=== PATIENT | male | born 1980 | race Caucasian/White ===

== ENCOUNTER 2018-08-08 20:33 | Emergency (ER) | payer MEDICAID ==
--- NOTE | 2018-08-08 21:35 | NUR ---
no response from lobby after 3 attempts to room, call placed to number on file. number disconnected. Dr. Escalante informed.
== END 2018-08-08 21:40 | disposition left against medical advice (07) ==
LOC: ER 20:34
DX: M25.579 Pain in unspecified ankle and joints of unspecified foot (principal); Z53.21 Procedure and treatment not carried out due to patient leaving prior to being seen by health care provider